=== PATIENT | female | born 1965 | race Caucasian/White ===

== ENCOUNTER 2019-01-01 08:58 | Inpatient (IN) | payer BC ==
[~2019-01-01] VITALS: Ht 172.7 cm; Wt 66.0 kg
[2019-01-04 13:28] VITALS: BP 95/58
== END 2019-01-04 15:52 | disposition home or self-care (01) | DRG 455 ==
LOC: ORIP 08:58 → 4NOR 17:43 → DCLOUNGE 01-04 15:31
PROVIDERS: ADMIT Neurological Surgery; ATTEND Neurological Surgery
PROC: 0SG00AJ Fusion of Lumbar Vertebral Joint with Interbody Fusion Device, Posterior Approach, Anterior Column, Open Approach (ICD-10-PCS; principal; 2019-01-01)
PROC: 0SG0071 Fusion of Lumbar Vertebral Joint with Autologous Tissue Substitute, Posterior Approach, Posterior Column, Open Approach (ICD-10-PCS; 2019-01-01)
PROC: 01NB0ZZ Release Lumbar Nerve, Open Approach (ICD-10-PCS; 2019-01-01)
PROC: 4A11X4G Monitoring of Peripheral Nervous Electrical Activity, Intraoperative, External Approach (ICD-10-PCS; 2019-01-01)
DX: M43.16 Spondylolisthesis, lumbar region (principal); M40.50 Lordosis, unspecified, site unspecified; M48.061 Spinal stenosis, lumbar region without neurogenic claudication; G43.909 Migraine, unspecified, not intractable, without status migrainosus; G40.909 Epilepsy, unspecified, not intractable, without status epilepticus
CPT/HCPCS: 36415; 72100; 80048; 85014; 85018; 85025; 95938; 95941; C1713; C1776; G0378; J0171; J0690; J1100; J1170; J1644; J2250; J2405; J2704; J2710; J3010; J3370; J3480; J3490; P9041; C1760; C1762; J2175; J2370; J7040; J7120; P9045

== ENCOUNTER → 2019-06-25 | Outpatient (CLI) | payer BC, OTHER ==
[~2019-06-25] MED LIST: ACET325T14 PO; ALBUTEROL SULFATE 2.5 MG/3 ML ONE; CHOL500015 PO; DIAZ5TAB PO; LACT1CAP40 PO; METH4TAB2 PO; MULT-516 PO; MULT-658 PO; NO MEDS PER PT; OMEGA 3 PO; ONDA4TAB7 PO; OXYC-432 PO; OXYC1TAB7 PO; SENN1TAB67 PO; TIZA2TAB2 PO; VITA1TAB3 PO
[2019-06-25 14:46] LABS: ANION GAP 8 mmol/L (5-15); CALCIUM 8.7 mg/dL (8.5-10.1); CHLORIDE 104 mmol/L (98-107); CREATININE 1.07 mg/dL (0.55-1.02)
[2019-06-25 14:47] LABS: MICROSCOPIC NOT IND
[2019-06-25 14:48] LABS: BASOPHILS # (AUTO) 0.03 x10^3/uL (0-0.1); BASOPHILS % (AUTO) 1 % (0-1); EOSINOPHILS # (AUTO) 0.31 x10^3/uL (0-0.4); EOSINOPHILS % (AUTO) 6 % (1-7); LYMPHOCYTES # (AUTO) 2.04 x10^3/uL (1-3.4); LYMPHOCYTES % (AUTO) 43 % (22-44); MD NO; MEAN CORPUSCULAR HEMOGLOBIN 30.4 pg (27.0-34.8); MEAN CORPUSCULAR HGB CONC 33.5 g/dL (32.4-35.8); MEAN CORPUSCULAR VOLUME 90.8 fL (80-100); MEAN PLATELET VOLUME 7.4 fL (7.4-10.4); MONOCYTES # (AUTO) 0.39 x10^3/uL (0.2-0.8); MONOCYTES % (AUTO) 8 % (2-9); NEUTROPHILS # (AUTO) 1.99 x10^3/uL (1.8-6.8); NEUTROPHILS % (AUTO) 42 % (42-75); PLATELET COUNT 240 x10^3/uL (130-400); RED BLOOD COUNT 4.57 x10^6/uL (3.82-5.3); RED CELL DISTRIBUTION WIDTH 14.8 % (9.6-15.2)
[2019-06-25 14:56] LABS: CULTURE INDICATED? NO
[2019-06-25 15:08] LABS: INTERNATIONAL NORMALIZED RATIO 0.94 (0.93-1.1)
== END | disposition home or self-care (01) ==
LOC: STAR 13:42
PROVIDERS: ATTEND Neurological Surgery
DX: Z01.818 Encounter for other preprocedural examination (principal); G56.01 Carpal tunnel syndrome, right upper limb
CPT/HCPCS: 36415; 80048; 81003; 85025; 85610; 85730; 93005

== ENCOUNTER 2019-07-04 06:58 | Day surgery (SDC) | payer OTHER ==
[~2019-07-04] VITALS: Ht 172.7 cm; Wt 63.9 kg
[~2019-07-04 06:58] MED LIST changes: -ALBUTEROL SULFATE 2.5 MG/3 ML ONE; +BACITRACIN 50,000 UNIT ONE; +BUPIVACAINE/PF 0.5% ONE
[2019-07-04 07:23] VITALS: BP 112/77
[2019-07-04] MEDS ORDERED: hydrALAzine 20 MG/ML, 1ML IV PRN (08:00)
[2019-07-04] MEDS ORDERED: FENTANYL PF 100 MCG/2ML IV PRN (08:00)
[2019-07-04] MEDS ORDERED: HYDROmorphone 1 MG/ML, 1ML INJ IVPush PRN (08:00)
[2019-07-04] MEDS ORDERED: OXYcodone 5 MG/5 ML ORAL.SOL UDC PO PRN (08:00)
[2019-07-04] MEDS ORDERED: PROMETHAZINE 25 MG/ML, 1ML IV PRN (08:00)
[2019-07-04] MEDS ORDERED: LABETALOL 5MG/ML, 20ML IV PRN (08:00)
[2019-07-04] MEDS ORDERED: ACETAMINOPHEN 325 MG TABLET PO PRN (08:00)
[2019-07-04] MEDS ORDERED: MEPERIDINE/PF 25MG/ML,1ML IVPush PRN (08:00)
[2019-07-04] MEDS ORDERED: ONDANSETRON 2MG/ML, 2ML IV PRN (08:00)
[2019-07-04] MEDS ORDERED: FENTANYL PF 250 MCG/5ML ONE (08:40)
[2019-07-04] MEDS ORDERED: MIDAZOLAM 1 MG/ML, 2ML ONE (08:40)
[2019-07-04] MEDS ORDERED: PROPOFOL 10 MG/ML, 20ML ONE ×2 (09:20→09:27)
[2019-07-04] MEDS ORDERED: DEXAMETHASONE 4 MG/ML, 1ML ONE (09:23)
[2019-07-04] MEDS ORDERED: ONDANSETRON 2MG/ML, 2ML ONE (09:23)
[2019-07-04] MEDS ORDERED: KETOROLAC 30 MG/1 ML ONE (09:24)
[2019-07-04] MEDS ORDERED: BUPIVACAINE/PF 0.5% INFIL ONE (09:46)
== END 2019-07-04 11:50 | disposition home or self-care (01) ==
LOC: OUT 06:58
PROVIDERS: ATTEND Neurological Surgery
DX: G56.01 Carpal tunnel syndrome, right upper limb (principal); G89.18 Other acute postprocedural pain; G43.909 Migraine, unspecified, not intractable, without status migrainosus; Z79.891 Long term (current) use of opiate analgesic; Z98.1 Arthrodesis status; Z98.890 Other specified postprocedural states; Z82.61 Family history of arthritis
CPT/HCPCS: 64721; J1100; J1885; J2250; J2405; J2704; J3010